=== PATIENT | male | born 1945 | race African-American/Black ===

== ENCOUNTER 2020-09-29 16:08 | Inpatient (IN) | payer BC, MEDICARE ==
[~2020-09-29] VITALS: Ht 177.8 cm; Wt 85.3 kg
[2020-09-29] MEDS ORDERED: ASPIRIN 81MG TABLET PO ONE (17:15)
[2020-09-29] MEDS ORDERED: ONDANSETRON 4MG ODT PO ONE (17:15)
[2020-09-29 18:31] LABS: EOSINOPHILS % 0.5 % (0.0-5.0); HEMATOCRIT. 26.2 % (42.0-52.0); HEMOGLOBIN. 9.8 g/dL (14.0-18.0); LYMPHOCYTES % 19.5 % (20.0-50.0); MEAN CORPUSCULAR VOLUME 93.7 fL (80.0-94.0); MEAN PLATELET VOLUME 7.3 fl (7.4-10.4); MONOCYTES % 6.6 % (2.0-8.0); NEUTROPHILS % 72.4 % (40.0-76.0); PLATELET 176 x1000/uL (130-400); RED BLOOD CELL COUNT 2.79 mill/uL (4.7-6.1); RED CELL DISTRIBUTION WIDTH 13.3 % (11.6-14.6)
[2020-09-29 18:46] LABS: CHLORIDE 106 mEq/L (98-107)
[2020-09-29 18:53] LABS: PARTIAL THROMBOPLASTIN TIME 24.6 sec (23.4-31.0); PROTHROMBIN TIME 10.9 sec (9.6-11.0)
[2020-09-30] MEDS ORDERED: ENZA40CA PO (09:46)
[2020-09-30] MEDS ORDERED: CARV40CP7 MT (09:47)
[2020-09-30] MEDS ORDERED: SACU1TAB7 MT (09:47)
[2020-09-30] MEDS ORDERED: HYDROCODONE/APAP 7.5/325MG 1 TAB TABLET PO PRN (11:30)
[2020-09-30] MEDS ORDERED: ONDANSETRON HCL 4MG/2ML INJ IV PRN (11:30)
[2020-09-30] MEDS ORDERED: GUAIFENESIN 200MG/10ML SUGAR FREE UDC PO PRN (11:30)
[2020-09-30] MEDS ORDERED: ACETAMINOPHEN 650MG/20.3ML UDC GT PRN ×2 (11:30)
[2020-09-30] MEDS ORDERED: ACETAMINOPHEN 325MG TABLET PO PRN ×2 (11:30)
[2020-09-30] MEDS ORDERED: NA PHOS,M-B/NA PHOS,DI-BA ENEMA 118ML PR PRN (11:30)
[2020-09-30] MEDS ORDERED: ACETAMINOPHEN 650MG SUPP PR PRN ×2 (11:30)
[2020-09-30] MEDS ORDERED: DOCUSATE SODIUM 100MG CAPSULE PO PRN (11:30)
[2020-09-30] MEDS ORDERED: MAGNESIUM/ALUMINUM HYDROXIDE/SIMETHICONE 30ML UDC PO PRN (11:30)
[2020-09-30] MEDS: ENOXAPARIN 40MG/0.4ML SYR SUBCUT SCH (12:00)
[2020-09-30] MEDS: CLONIDINE 0.1MG TABLET PO PRN (16:05)
[2020-09-30 19:22] LABS: CLARITY URINE CLEAR (CLEAR); COLOR URINE YELLOW (YELLOW); KETONES URINE NEGATIVE (NEGATIVE); LEUKOCYTE ESTERASE URINE NEGATIVE (NEGATIVE); NITRITE URINE NEGATIVE (NEGATIVE); OCCULT BLOOD URINE 3+ (NEGATIVE); PH URINE 5.5 (4.5-8.0); PROTEIN URINE 4+ (NEGATIVE); SPECIFIC GRAVITY URINE 1.021 (1.005-1.030); UROBILINOGEN URINE 0.2 E.U./dL (0.2-1.0)
[2020-10-01] VITALS (9 sets, daily range): BP systolic 133–169; BP diastolic 56–87
[2020-10-01] MEDS: SACUBITRIL/VALSARTAN 49MG/51MG TABLET PO SCH ×3 (01:16→22:27)
[2020-10-01] MEDS ORDERED: ASPI-1497 PO (02:17)
[2020-10-01] MEDS ORDERED: ASCO100T12 PO (02:17)
[2020-10-01] MEDS ORDERED: LIP40 PO (02:17)
[2020-10-01] MEDS ORDERED: ERGO2000 PO (02:17)
[2020-10-01] MEDS ORDERED: FURO-151 PO (02:17)
[2020-10-01 07:36] LABS: BASOPHILS % 0.8 % (0.0-2.0); EOSINOPHILS % 0.9 % (0.0-5.0); HEMATOCRIT. 21.5 % (42.0-52.0); HEMOGLOBIN. 7.7 g/dL (14.0-18.0); LYMPHOCYTES % 27.6 % (20.0-50.0); MEAN CORPUSCULAR HEMOGLOBIN 33.8 pg (28.0-32.0); MEAN CORPUSCULAR VOLUME 94.3 fL (80.0-94.0); MEAN PLATELET VOLUME 7.6 fl (7.4-10.4); MONOCYTES % 11.4 % (2.0-8.0); NEUTROPHILS % 59.3 % (40.0-76.0); PLATELET 144 x1000/uL (130-400); RED BLOOD CELL COUNT 2.28 mill/uL (4.7-6.1); RED CELL DISTRIBUTION WIDTH 13.1 % (11.6-14.6)
[2020-10-01] MEDS: ENOXAPARIN 40MG/0.4ML SYR SUBCUT SCH (09:00)
[2020-10-01] MEDS ORDERED: ENZA40CA PO (09:18)
[2020-10-01] MEDS ORDERED: EPLE25TA PO (09:18)
[2020-10-01] MEDS: MULTIVITAMINS,THER W-MINERALS TABLET PO SCH (15:13)
[2020-10-01] MEDS: FUROSEMIDE 40MG TABLET PO SCH (15:13)
[2020-10-01] MEDS: CLONIDINE 0.1MG TABLET PO PRN (15:16)
[2020-10-01] MEDS ORDERED: FUROSEMIDE 40MG TABLET PO SCH (17:15)
[2020-10-01 19:50] LABS: CHLORIDE 109 mEq/L (98-107)
[2020-10-01] MEDS: ATORVASTATIN CALCIUM 40MG TABLET PO SCH (22:27)
[2020-10-02] VITALS (9 sets, daily range): BP systolic 144–170; BP diastolic 50–80
[2020-10-02 06:56] LABS: INR 1.1; PROTHROMBIN TIME 11.4 sec (9.6-11.0)
[2020-10-02] MEDS ORDERED: CARVEDILOL PHOSPHATE MT SCH (09:00)
[2020-10-02] MEDS ORDERED: ASPIRIN 81MG EC TABLET PO SCH (09:00)
[2020-10-02] MEDS: ENOXAPARIN 40MG/0.4ML SYR SUBCUT SCH (09:00)
[2020-10-02] MEDS ORDERED: EPLERENONE 25 MG TABLET PO SCH ×2 (09:00→12:00)
[2020-10-02] MEDS ORDERED: CARVEDILOL 12.5MG TABLET PO SCH ×2 (09:00)
[2020-10-02] MEDS ORDERED: ENZALUTAMIDE 40 MG PO SCH (09:00)
[2020-10-02] MEDS: MULTIVITAMINS,THER W-MINERALS TABLET PO SCH (09:21)
[2020-10-02] MEDS: SACUBITRIL/VALSARTAN 49MG/51MG TABLET PO SCH ×2 (09:22→22:29)
[2020-10-02] MEDS: FUROSEMIDE 40MG TABLET PO SCH (09:22)
[2020-10-02 09:29] LABS: BASOPHILS % 1.3 % (0.0-2.0); HEMATOCRIT. 24.7 % (42.0-52.0); HEMOGLOBIN. 8.9 g/dL (14.0-18.0); MEAN CORPUSCULAR HEMOGLOBIN 33.7 pg (28.0-32.0); MEAN CORPUSCULAR VOLUME 93.5 fL (80.0-94.0); MEAN PLATELET VOLUME 7.5 fl (7.4-10.4); NEUTROPHILS % 61.7 % (40.0-76.0); PLATELET 149 x1000/uL (130-400); RED BLOOD CELL COUNT 2.64 mill/uL (4.7-6.1); RED CELL DISTRIBUTION WIDTH 13.5 % (11.6-14.6)
[2020-10-02 09:43] LABS: CHLORIDE 111 mEq/L (98-107)
[2020-10-02] MEDS ORDERED: SODIUM CHLORIDE 0.45% 1,000 ML IV ONE (11:45)
[2020-10-02] MEDS ORDERED: EPLERENONE 25 MG PO SCH ×2 (12:00)
[2020-10-02] MEDS: CLONIDINE 0.1MG TABLET PO PRN (12:35)
[2020-10-02] MEDS ORDERED: LOSARTAN POTASSIUM 50 MG TABLET PO SCH (17:00)
[2020-10-02] MEDS: ATORVASTATIN CALCIUM 40MG TABLET PO SCH (22:29)
== END 2020-10-02 23:36 | disposition home or self-care (01) | DRG 177 ==
LOC: ER 16:08 → MICUSO 20:19 → EDBEDREQ 20:31 → 7WST 09-30 22:53 → 6WST 10-01 18:51 → 7WST 10-02 11:48
PROVIDERS: ADMIT Family Medicine; ATTEND Family Medicine
PROC: 30233N1 Transfusion of Nonautologous Red Blood Cells into Peripheral Vein, Percutaneous Approach (ICD-10-PCS; principal; 2020-10-01)
DX: U07.1 COVID-19 (principal); I50.23 Acute on chronic systolic (congestive) heart failure; I42.9 Cardiomyopathy, unspecified; G90.8 Other disorders of autonomic nervous system; I25.10 Atherosclerotic heart disease of native coronary artery without angina pectoris; R58 Hemorrhage, not elsewhere classified; I11.0 Hypertensive heart disease with heart failure; E78.5 Hyperlipidemia, unspecified; R31.9 Hematuria, unspecified; C61 Malignant neoplasm of prostate; Z20.828 Contact with and (suspected) exposure to other viral communicable diseases
CPT/HCPCS: 36415; 71045; 80053; 80061; 81003; 82550; 83880; 84153; 84484; 85025; 85379; 85384; 86850; 86900; 86920; 87426; 93005; 93306; 93880; 93970; 99285; J1650; P9021; Q0162; U0003; G0103